=== PATIENT | female | born 1955 | race African-American/Black ===

== ENCOUNTER 2019-09-26 11:58 | Emergency (ER) | payer MEDICAID, OTHER ==
[~2019-09-26] VITALS: Ht 160 cm; Wt 61.2 kg
[2019-09-26] MEDS ORDERED: ACETAMINOPHEN ES 500 MG TABLET ONE (12:55)
[2019-09-26] MEDS ORDERED: ACETAMINOPHEN ES 500 MG TABLET PO ONE (13:00)
--- NOTE | 2019-09-26 13:03 | NUR ---
PT WAS EVALUATED BY DR DAVIS. PT WAS D/C'd TO HOME. D/C INSTRUCTIONS GIVEN TO THE PT BY DR DAVIS. PT REFUSED TO TAKE HOMELESS RESOURSES PAKAGE. GAIT IS STABLE. NO S/S OF DISTRESS AT THIS TIME.
[2019-09-26 13:07] VITALS: BP 138/82
== END 2019-09-26 13:49 | disposition home or self-care (01) ==
LOC: ER 11:58
DX: M54.5 Low back pain (principal); D25.9 Leiomyoma of uterus, unspecified; R03.0 Elevated blood-pressure reading, without diagnosis of hypertension; Z59.0 Homelessness
CPT/HCPCS: 72170; A4663; A9150

== ENCOUNTER 2019-11-12 09:43 | Emergency (ER) | payer OTHER ==
[~2019-11-12] VITALS: Ht 165.1 cm; Wt 66.2 kg
--- NOTE | 2019-11-12 10:05 | NUR ---
called fam arevalo at [phone], talked to the nurse. she will arrange the uber to [place] pick[place] the pt.
[2019-11-12] MEDS ORDERED: IBUPROFEN 600 MG TABLET ONE (10:10)
[2019-11-12] MEDS ORDERED: IBUPROFEN 600 MG TABLET PO ONE (10:15)
--- NOTE | 2019-11-12 10:19 | NUR ---
Patient discharged to home in stable condition. Written and verbal after care instructions given. Patient verbalizes understanding of instructions. Stressed follow up or return to ER for worsening s/s.pt walks in steady gait. assissted pt to [employer] car. told the uber cryogenic transport driver to drop the pt at [facility].
[2019-11-12 10:22] VITALS: BP 132/51
== END 2019-11-12 10:23 | disposition home or self-care (01) ==
LOC: ER 09:43
DX: M54.5 Low back pain (principal); Z86.59 Personal history of other mental and behavioral disorders; Z88.0 Allergy status to penicillin; Z59.0 Homelessness; G89.29 Other chronic pain
CPT/HCPCS: A4663